=== PATIENT | female | born 1960 | race Caucasian/White ===

== ENCOUNTER 2024-09-30 14:00 | Emergency (ER) | payer BC | END 2024-09-30 17:17 | disposition home or self-care (01) | LOC: JD.ED 14:00 | DX: J01.90 Acute sinusitis, unspecified (principal); B34.9 Viral infection, unspecified; Z88.0 Allergy status to penicillin; Z79.899 Other long term (current) drug therapy | CPT/HCPCS: 71046; 71046-26; 99283 ==